=== PATIENT | male | born 1990 | race Caucasian/White ===

== ENCOUNTER 2018-06-22 20:52 | Emergency (ER) | payer SELFPAY ==
[~2018-06-22] VITALS: Ht 167.6 cm; Wt 80.9 kg
[~2018-06-22 20:52] MED LIST: OMEPRAZOLE PO; ZANTAC PO
[2018-06-22 21:14] VITALS: Ht 167.6 cm; Wt 80.9 kg
[2018-06-23] MEDS ORDERED: ACET/BUTAL/CAFF TAB PO ONE (04:30)
--- NOTE | 2018-06-23 04:31 | ERD ---
ER Documentation Chief Complaint Chief Complaint headache x 2 days HPI 27-year-old male presents here to emergency department for complaints of headaches for 2 days, describes the pain as throbbing pain, 6/10 scale, not better or worse with anything. Patient has been having headaches for years now, has been having it on and off, only took dxeq-cyy-vgorzlo medication, never been checked any specialists or any primary care doctor for this. Today pain is worse. Took gbdu-cvu-tdefnnb medication Excedrin Migraine, ibuprofen with only mild relief. Patient denies any nausea or vomiting. Patient denies any head injury. Patient denies any dizziness. ROS All systems reviewed and are negative except as per history of present illness. Medications Home Meds Reported Medications [Zantac] No Conflict Check, PO DAILY 08/12/11 [Omeprazole] No Conflict Check, PO DAILY 08/12/11 Allergies Allergies: Coded Allergies: aspirin (Verified Allergy, Mild, 08/12/11) PMhx/Soc Medical and Surgical Hx: pt denies Medical Hx, pt denies Surgical Hx History of Surgery: No Anesthesia Reaction: No Hx Neurological Disorder: No Hx Respiratory Disorders: No Hx Cardiac Disorders: No Hx Psychiatric Problems: No Hx Miscellaneous Medical Probl: No Hx Alcohol Use: No Hx Substance Use: No Hx Tobacco Use: No FmHx Family History: No diabetes, No coronary disease, No other Physical Exam Vitals Vital Signs Date Temp Pulse Resp B/P (MAP) Pulse Ox O2 O2 Flow FiO2 Time Delivery Rate 06/22/18 97.1 66 18 164/101 98 21:14 (122) Physical Exam GENERAL: The patient is well developed and appropriate for usual state of health, in no apparent distress. CHEST: Clear to auscultation bilaterally. There are no rales, wheezes or rhonchi. HEART: Regular rate and rhythm. No murmurs, clicks, rubs or gallops. No S3 or S4. ABDOMEN: Soft, nontender and nondistended. Good bowel sounds. No rebound or guarding. No gross peritonitis. No gross organomegaly or masses. No Flor sign or McBurney point tenderness. BACK: No midline or flank tenderness. EXTREMITIES: Equal pulses bilaterally. There is no peripheral clubbing, cyanosis or edema. No focal swelling or erythema. Full range of motion. Grossly neurovascularly intact. NEURO: Alert and oriented. Cranial nerves 2-12 intact. Motor strength in all 4 extremities with 5/5 strength. Sensation grossly intact. Normal speech and gait. Negative Romberg sign. Negative pronator drift. SKIN: There is no apparent rash or petechia. The skin is warm and dry. HEMATOLOGIC AND LYMPHATIC: There is no evidence of excessive bruising or lymphedema. No gross cervical, axillary, or inguinal lymphadenopathy. Results 24 hrs Current Medications Medications Dose Sig/Tiesha Start Time Status Last (Trade) Ordered Route PRN Stop Time Admin Dose Reason Admin 1 tab ONCE ONCE 06/23/18 DC 06/23/18 Acetaminophen PO 04:30 04:40 / 06/23/18 04:35 Butalbital/ Caffeine (Fioricet) Patient was given medication for pain here in emergency department, after treatment, patient verbalized feeling much better. Patient's pain is improved. PROCEDURE: CT Brain without contrast. CLINICAL INDICATION: Headache TECHNIQUE: CT scan of the brain was performed on a multidetector high- resolution CT scan. Axial imaging was obtained of the brain without contrast administration. Coronal and sagittal reformatted images were obtained from the axial source images. Standard CT scan of the head without contrast protocols were performed. The total exam CTDI equals 39.64 mGy and the total exam DLP equals 634.23 mGy- cm. One or more of the following dose reduction techniques were used: - Automated exposure control. - Adjustment of the mA and/or kV according to patient size. Use of iterative reconstruction technique. Dicom images are available COMPARISON: None. FINDINGS: The ventricular system and peripheral CSF spaces are unremarkable. No evidence of intracranial masses hemorrhages or midline shift. The chauhdary-white matter differentiation is unremarkable. The bones of the calvarium are intact. The visualized paranasal sinuses and mastoids are unremarkable. IMPRESSION: No evidence of intracranial masses hemorrhages or midline shift. RPTAT:AAJJ Physician Ladarius Date Time Electronically viewed and signed by Physician Ladarius on 06/23/2018 05:10 BM/ CC: CATHRYN MERAZ DIRECTOR OF WOMEN'S SERVICES Procedures/MDM Medical Decision Making: Patient symptoms are consistent with migraine headache, possible tension headache. There is low suspicion for neurological emergencies at this time since patients neurologic exam is normal. Patient did not have any altered level consciousness, vomiting, changes in balance or memory and did not have any head injury. Patients CT scan of the head does not show any neurological emergencies at this time. advised to see neurology specialist for further evaluation and management. Rx: Fioricet with codeine, Zofran Dispostion: Home. Stable Disclaimer: Inadvertent spelling and grammatical errors are likely due to EHR/dictation software use and do not reflect on the overall quality of patient care. Also, please note that the electronic time recorded on this note does not necessarily reflect the actual time of the patient encounter. Departure Diagnosis: Primary Impression: Headache Headache type: unspecified Headache chronicity pattern: acute headache Intractability: not intractable Qualified Codes: R51 - Headache Condition: Stable Patient Instructions: Self-Care for Headaches CATHRYN MERAZ NP Jun 23, 2018 04:31
[2018-06-23] MEDS ORDERED: ONDA4TAB14 PO (05:17)
[2018-06-23] MEDS ORDERED: ABCC1C PO (05:17)
[2018-06-23 05:26] VITALS: BP 142/92; PULSE 64; RESP 18
== END 2018-06-23 05:28 | disposition home or self-care (01) ==
LOC: FTE 20:52
DX: R51 Headache (principal)
CPT/HCPCS: 70450

== ENCOUNTER 2018-07-14 23:57 | Emergency (ER) | payer MEDICAID ==
[~2018-07-14] VITALS: Wt 83.2 kg
[~2018-07-14 23:57] MED LIST changes: +ABCC1C PO; +ONDA4TAB14 PO
[2018-07-15 07:38] VITALS: RESP 18
[2018-07-15] MEDS ORDERED: LORAZEPAM 0.5 MG TAB PO ONE (08:00)
[2018-07-15] MEDS ORDERED: PRED20TA PO (08:08)
[2018-07-15] MEDS ORDERED: LORA-441 PO (08:08)
[2018-07-15] MEDS ORDERED: BEN25 PO (08:08)
[2018-07-15 08:27] VITALS: BP 147/104; PULSE 104
--- NOTE | 2018-07-15 13:10 | ERD ---
ER Documentation Chief Complaint Chief Complaint SOB X'S 1 HPI 27 yr old male complaining of SOB and headache. Patient states that he took some ibuprofen earlier today and felt sudden shortness of breath. Denies any facial swelling. He is taking ibuprofen in the past with no signs of allergic reaction or complications. 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 Denies any history of clotting disorder. Denies any cardiac chest pain. Smokes occasionally. Denies leg swelling. Is allergic to aspirin. ROS All systems reviewed and are negative except as per history of present illness. Medications Home Meds Active Scripts Lorazepam* (Ativan*) 0.5 Mg Tablet, 0.5 MG PO Q8, #5 TAB Prov:JAYESH DUENAS PA-C 07/15/18 Diphenhydramine Hcl* (Benadryl*) 25 Mg Cap, 25 MG PO Q6, #30 CAP Prov:JAYESH DUENAS PA-C 07/15/18 Prednisone* (Prednisone*) 20 Mg Tab, 40 MG PO DAILY for 4 Days, TAB Prov:JAYESH DUENAS PA-C 07/15/18 Ondansetron (Ondansetron Odt) 4 Mg Tab.rapdis, 4 MG PO Q6H PRN for NAUSEA AND/OR VOMITING, #10 TAB Prov:CATHRYN MERAZ NP 06/23/18 Tgfeozkddblxx-Zhitpxvinq-Wwujnwbk-Codeine* (Fioricet w/Codeine*) 130HY-35ER-56YL-30MG Cap, 1 CAP PO Q4H PRN for PAIN LEVEL 1-5, #7 CAP Prov:CATHRYN MERAZ SENIOR ANALYTIC CONSULTANT 06/23/18 Reported Medications [Zantac] No Conflict Check, PO DAILY 08/12/11 [Omeprazole] No Conflict Check, PO DAILY 08/12/11 Allergies Allergies: Coded Allergies: aspirin (Verified Allergy, Mild, 08/12/11) PMhx/Soc History of Surgery: No Anesthesia Reaction: No Hx Neurological Disorder: No Hx Respiratory Disorders: No Hx Cardiac Disorders: No Hx Psychiatric Problems: No Hx Miscellaneous Medical Probl: No Hx Alcohol Use: No Hx Substance Use: No Hx Tobacco Use: No FmHx Family History: No diabetes, No coronary disease, No other Physical Exam Vitals Vital Signs Date Temp Pulse Resp B/P (MAP) Pulse Ox O2 O2 Flow FiO2 Time Delivery Rate 07/15/18 104 147/104 08:27 (118) 07/15/18 117 18 171/101 99 Room Air 07:38 (124) 07/15/18 100.0 117 18 164/104 100 Room Air 06:51 (124) 07/15/18 98.9 132 18 187/100 98 00:00 (129) Physical Exam GENERAL: The patient is well-appearing, well-nourished, in no acute distress HEENT: Atraumatic. Conjunctivae are pink. Pupils equal, round, and reactive to light. There is no scleral icterus. Tympanic membranes clear bilaterally. Oropharynx clear. NECK: C-spine is soft and supple. There is no meningismus. There is no cervical lymphadenopathy. CHEST: Clear to auscultation bilaterally. There are no rales, wheezes or rhonchi. HEART: Regular rate and rhythm. No murmurs, clicks, rubs or gallops. Result Diagram: 07/15/18 0640 07/15/18 0640 Results 24 hrs Laboratory Tests Test 07/15/18 06:30 07/15/18 06:40 Urine Color STRAW Urine Clarity CLEAR Urine pH 5.0 Urine Specific [place] 1.005 Urine Ketones NEGATIVE mg/dL Urine Nitrite NEGATIVE mg/dL Urine Bilirubin NEGATIVE mg/dL Urine Urobilinogen NEGATIVE mg/dL Urine Leukocyte Esterase NEGATIVE Jocelynn/ul Urine Microscopic RBC 1 /HPF Urine Microscopic WBC 1 /HPF Urine Hemoglobin 1+ mg/dL Urine Glucose NEGATIVE mg/dL Urine Total Protein NEGATIVE mg/dl White Blood Count 10.4 10^3/ul Red Blood Count 5.78 10^6/ul Hemoglobin 16.5 g/dl Hematocrit 46.9 % Mean Corpuscular Volume 81.1 fl Mean Corpuscular Hemoglobin 28.5 pg Mean Corpuscular Hemoglobin Concent 35.2 g/dl Red Cell Distribution Width 12.0 % Platelet Count 242 10^3/UL Mean Platelet Volume 11.8 fl Immature Granulocytes % 0.400 % Neutrophils % 77.7 % Lymphocytes % 16.4 % Monocytes % 5.2 % Eosinophils % 0.0 % Basophils % 0.3 % Nucleated Red Blood Cells % 0.0 /100WBC Immature Granulocytes # 0.040 10^3/ul Neutrophils # 8.1 10^3/ul Lymphocytes # 1.7 10^3/ul Monocytes # 0.5 10^3/ul Eosinophils # 0.0 10^3/ul Basophils # 0.0 10^3/ul Nucleated Red Blood Cells # 0.0 10^3/ul Prothrombin Time 12.7 Sec Prothrombin Time Ratio 1.0 INR International Normalized Ratio 0.94 Activated Partial Thromboplast Time 27.2 Sec D-Dimer < 460.00 ng/ml D-Dimer Comment Sodium Level 143 mmol/L Potassium Level 3.5 mmol/L Chloride Level 98 mmol/L Carbon Dioxide Level 29 mmol/L Anion Gap 16 Blood Urea Nitrogen 11 mg/dl Creatinine 0.80 mg/dl Est Glomerular Filtrat Rate mL/min > 60 mL/min Glucose Level 119 mg/dl Calcium Level 10.7 mg/dl Total Bilirubin 0.5 mg/dl Direct Bilirubin 0.00 mg/dl Indirect Bilirubin 0.5 mg/dl Aspartate Amino Transf (AST/SGOT) 38 IU/L Alanine Aminotransferase (ALT/SGPT) 53 IU/L Alkaline Phosphatase 105 IU/L Total Protein 9.5 g/dl Albumin 5.2 g/dl Globulin 4.30 g/dl Albumin/Globulin Ratio 1.20 Lipase 29 U/L Current Medications Medications Dose Sig/Tiesha Start Time Status Last (Trade) Ordered Route PRN Stop Time Admin Dose Reason Admin Lorazepam 0.5 mg ONCE ONCE 07/15/18 DC 07/15/18 (Ativan) PO 08:00 07:40 07/15/18 08:01 Procedures/MDM EKG: Rate/Rhythm: 95 bpm Normal Sinus Rhythm QRS, ST, T-waves: No changes consistent w/ acute ischemia Impression: No evidence of ischemia or arrhythmia DIAGNOSTIC IMAGING REPORT Patient: MATT SAMANIEGO : 1990 Age: 27 Sex: M MR #: [id number] DOS: 07/15/18 0616 Ordering MD: NAILA DUENAS PA-C Location: [facility] Room/Bed: PROCEDURE: XR Chest. CLINICAL INDICATION: Abdominal pain. TECHNIQUE: Chest, 1 view. COMPARISON: None. FINDINGS: The cardiomediastinal silhouette is normal in size. No focal consolidation is seen. No pleural effusion is seen. No definite pneumothorax is seen. No acute osseous abnormality. IMPRESSION: No radiographic evidence of an acute cardiopulmonary process. MDM: 27-year-old male presenting with shortness of breath. Patient's blood work is within normal limits. I have low suspicion for PE as patient does not have elevated d-dimer. Chest x-ray is within normal limits. EKG is stable. Patient is discharged with supportive medications and told to follow-up with primary care within 1-2 days for close evaluation. Patient is told if symptoms change or worsen to return immediately to the ER. All questions answered at discharge Departure Diagnosis: Primary Impression: Anxiety Condition: Stable Patient Instructions: Anxiety Reaction Referrals: [facility] (PCP) Additional Instructions: FOLLOW UP WITH YOUR PRIMARY CARE PHYSICIAN TOMORROW.Return to this facility if you are not improving as expected. JAYESH DUENAS PA-C Jul 15, 2018 13:10
== END 2018-07-15 08:28 | disposition home or self-care (01) ==
LOC: FTE 23:57
DX: F41.9 Anxiety disorder, unspecified (principal)
CPT/HCPCS: 36415; 71045; 80053; 81001; 83690; 85025; 85378; 85610; 85730; 93005; Z7502; Z7610

== ENCOUNTER 2018-12-15 04:05 | Emergency (ER) | payer MEDICAID, OTHER ==
[~2018-12-15] VITALS: Ht 167.6 cm; Wt 79.2 kg
[~2018-12-15 04:05] MED LIST changes: +BEN25 PO; +HYDR-4011 PO; +LORA-441 PO; +PRED20TA PO; +TAMS-14 PO
[2018-12-15 04:09] VITALS: Ht 167.6 cm; Wt 79.2 kg
[2018-12-15] MEDS ORDERED: morphine 2 MG INJ IV STA (04:26)
[2018-12-15] MEDS ORDERED: ONDANSETRON 4 MG INJ IV STA (04:26)
[2018-12-15] MEDS ORDERED: SOD CHLORIDE 0.9% 1,000 ML IV STA (04:26)
[2018-12-15 06:46] VITALS: BP 130/69; PULSE 66; RESP 18
== END 2018-12-15 06:48 | disposition home or self-care (01) ==
LOC: FTE 04:05
DX: M54.5 Low back pain (principal); R10.31 Right lower quadrant pain; I10 Essential (primary) hypertension
CPT/HCPCS: 36415; 74176; 80053; 81001; 83690; 85025; 96374; 96375; J2270; J2405; J7030; Z7502